=== PATIENT | female | born 1980 | race Caucasian/White ===

== ENCOUNTER 2023-11-04 14:09 | Outpatient (CLI) | payer OTHER | END 2023-11-04 14:10 | disposition home or self-care (01) | LOC: CSHRAD 14:09 | PROVIDERS: ATTEND Internal Medicine Cardiovascular Disease | DX: R55 Syncope and collapse (principal); Z45.018 Encounter for adjustment and management of other part of cardiac pacemaker | CPT/HCPCS: 71046 ==